=== PATIENT | male | born 1985 | race Caucasian/White ===

== ENCOUNTER 2018-02-12 12:07 | Emergency (ER) | payer OTHER ==
[2018-02-12 12:26] VITALS: BP 140/99; PULSE 78; TEMP 98.6; BMI 25.8
--- NOTE | 2018-02-12 12:49 | PDOC ---
History of Present Illness - General Chief Complaint: Psychiatric Stated Complaint: TESTING Time Seen by Provider: 02/12/18 12:37 History Source: Patient Exam Limitations: No Limitations - History of Present Illness Initial Comments: 02/12/18 12:48 Dr. Montesinos 32 yo male pmh of bipolar with a recent admission to [facility] presents to ED for "DNA testing because I want to prove Cardi Patrick has my baby." Pt denies homicidal and suicidal ideation but has has decreased need for sleep and grandiosity. Pt states he takes haldol and zyprexa as prescribed and sees his Psychiatrist (Dr. Montesinos) regularly. No medical complaints today. Unable to get in contact with Psychiatrist, will put out referral to Dr. Coronel. Past History - Past Medical History Allergies/Adverse Reactions: Allergies Allergy/AdvReac Type Severity Reaction Status Date / Time No Known Allergies Allergy Verified 02/12/18 12:20 Home Medications: Ambulatory Orders Haloperidol [Haldol -] 0 mg PO ASDIR 02/12/18 Olanzapine [Zyprexa] 0 mg PO ASDIR 02/12/18 COPD: No Psychiatric Problems: Yes (BIPOLAR) - Suicide/Smoking/Psychosocial Hx Smoking History: Current every day smoker Have you smoked in the past 12 months: Yes Number of Cigarettes Smoked Daily: 10 Information on smoking cessation initiated: Yes Hx Alcohol Use: No Drug/Substance Use Hx: No Substance Use Type: None *Physical Exam - Vital Signs Last Vital Signs Temp Pulse Resp BP Pulse Ox 98.6 F 78 18 140/99 100 02/12/18 12:22 02/12/18 12:22 02/12/18 12:22 02/12/18 12:22 02/12/18 12:22 ED Treatment Course - LABORATORY CBC & Chemistry Diagram: 02/12/18 12:51 02/12/18 12:51 *DC/Admit/Observation/Transfer Diagnosis at time of Disposition: Bipolar 1 disorder - Discharge Dispostion Disposition: HOME Condition at time of disposition: Stable Decision to Admit order: No - Referrals Referrals: Anitha Sherman [Primary Care Provider] - Hugo Montesinos [Other] - Patient Instructions Printed Discharge Instructions: DI for Bipolar Disorder Additional Instructions: Please follow up with your Psychiatrist within the next 2 days for follow up. Please return to the Emergency Room for any suicidal or homicidal thoughts or hallucinations Please take medications as prescribed by your psychiatrist Thank you - Post Discharge Activity
[2018-02-12 13:10] LABS: URINE APPEARANCE CLEAR; URINE BILIRUBIN NEGATIVE (<2.0 mg/dL); URINE COLOR STRAW; URINE GLUCOSE (UA) NEGATIVE (NEGATIVE); URINE KETONE 1+ (NEGATIVE); URINE LEUK ESTERASE NEGATIVE (NEGATIVE); URINE NITRITE NEGATIVE (NEGATIVE); URINE PROTEIN NEGATIVE (NEGATIVE); URINE UROBILINOGEN NEGATIVE mg/dL (0.2-1.0)
[2018-02-12 13:14] LABS: BASO % 0.5 % (0-2.0); EOS % 0.4 % (0-4.5); HEMATOCRIT 44.4 % (35.4-49); HEMOGLOBIN 15.2 GM/dL (11.7-16.9); LYMPH % 16.9 % (8-40); MCH 31.1 pg (25.7-33.7); MCHC 34.2 g/dl (32.0-35.9); MEAN CELL VOLUME 90.7 fl (80-96); MEAN PLT VOLUME 7.1 fl (7.5-11.1); NEUT % 76.2 % (42.8-82.8); PLATELET COUNT 209 K/MM3 (134-434); RDW 13.3 % (11.9-15.9); WHITE BLOOD COUNT 6.3 K/mm3 (4.0-10.0)
[2018-02-12 13:31] LABS: COCAINE, UR NEGATIVE ng/ml (CUTOFF=300); METHADONE, UR NEGATIVE ng/ml (CUTOFF=300); OPIATES, URI NEGATIVE ng/ml (CUTOFF=300); PHENCYCLIDINE,URINE NEGATIVE ng/ml (CUTOFF=25); URINE AMPHETAMINES NEGATIVE ng/ml (CUTOFF=500); URINE BARBITURATES NEGATIVE ng/ml (CUTOFF=200); URINE BENZODIAZEPINES NEGATIVE ng/ml (CUTOFF=200)
[2018-02-12 13:38] LABS: ALBUMIN 4.4 g/dl (3.4-5.0); ALK PHOS 64 U/L (45-117); ANION GAP 9 MMOL/L (8-16); BILIRUBIN,TOTAL 0.9 mg/dL (0.2-1); BLOOD UREA NITROGEN 14 mg/dL (7-18); CHLORIDE 105 mmol/L (98-107); CO2 25 mmol/L (21-32); CREATININE 1.2 mg/dL (0.55-1.3); GLUCOSE,RANDOM 99 mg/dL (74-106); POTASSIUM 4.1 mmol/L (3.5-5.1); SGOT/AST 43 U/L (15-37); SGPT/ALT 33 U/L (13-61); SODIUM 139 mmol/L (136-145); TOT PROT 7.5 g/dl (6.4-8.2)
--- NOTE | 2018-02-12 14:13 | PDOC ---
Attending Attestation - Resident Resident Name: GisellHima - ED Attending Attestation I have performed the following: I have examined & evaluated the patient, The case was reviewed & discussed with the resident, I agree w/resident's findings & plan, Exceptions are as noted - HPI HPI: 02/12/18 14:08 32 yo male with h/o bipolar disorder here requesting a dna test because he thinks he is father to cardi b baby" pt states he has only been sleeping 4 hrs / night. was recently admitted to [place] for manic epsiode. denies drug use. denies thoughts of self harm or harm to otheres denies hallucinations. states he has been taking his meds, zyprexa. - Physicial Exam PE: 02/12/18 14:12 awake alert lungs clear bilaterally heart rrr no mrg abd soft nt nd. ext wwp no edema no calf tenderness. 2 + dp/ pt pulses bilaterlaly. psych awake alert, mild grandiosity. but speech is slow cooperative. - Medical Decision Making 02/12/18 14:13 pt with psych history, recent admission, grandiosity concerns for manic episode. will d/w with dr. florez, also try to d/w pt private psychiatrist. 02/12/18 14:16 called [facility] [phone] 02/12/18 14:[address] florez feels pt stable to dc to home can followup with [facility] (formerly [facility]). dc home.
== END 2018-02-12 15:11 | disposition home or self-care (01) ==
LOC: JER 12:07
DX: F31.89 Other bipolar disorder (principal); Z01.89 Encounter for other specified special examinations
CPT/HCPCS: 36415; 80053; 80307; 81003; 85025; 99281-25

== ENCOUNTER 2018-05-10 13:12 | Emergency (ER) | payer OTHER ==
[2018-05-10 13:23] VITALS: BP 139/93; PULSE 54; TEMP 98.1; BMI 25.0
[2018-05-10] MEDS ORDERED: IBUPROFEN 600 MG TABLET (FP) PO ONE ×2 (14:29→14:34)
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
== END 2018-05-10 16:34 | disposition home or self-care (01) ==
LOC: JERFT 13:12
DX: S00.83XA Contusion of other part of head, initial encounter (principal); Y04.2XXA Assault by strike against or bumped into by another person, initial encounter; Y93.89 Activity, other specified; Y92.29 Other specified public building as the place of occurrence of the external cause; Y99.8 Other external cause status; Y07.9 Unspecified perpetrator of maltreatment and neglect; F41.9 Anxiety disorder, unspecified; F20.9 Schizophrenia, unspecified; F17.210 Nicotine dependence, cigarettes, uncomplicated
CPT/HCPCS: 99281-25